=== PATIENT | male | born 1950 | race Caucasian/White ===

== ENCOUNTER 2025-01-01 11:10 | Inpatient (IN) | payer OTHER ==
[2025-01-01 13:26] LABS: BASO % 0.2 % (0-2.0); EOS % 0.5 % (0-4.5); HEMOGLOBIN 14.5 GM/dL (11.7-16.9); LYMPH % 15.1 % (8-40); MCH 30.9 pg (25.7-33.7); MCHC 32.9 g/dl (32.0-35.9); MEAN CELL VOLUME 93.9 fl (80-96); MEAN PLT VOLUME 9.5 fl (7.5-11.1); NEUT % 71.2 % (42.8-82.8); PLATELET COUNT 184 10^3/uL (134-434); RBC 4.68 M/mm3 (4.00-5.60); RDW 15.7 % (11.9-15.9); WHITE BLOOD COUNT 5.8 K/mm3 (4.0-10.0)
[2025-01-01 13:51] LABS: POTASSIUM 4.6 mmol/L (3.5-5.1)
[2025-01-01 13:53] LABS: BLOOD UREA NITROGEN 31.5 mg/dL (7-18); CALCIUM 9.9 mg/dL (8.5-10.1)
[2025-01-01 13:54] LABS: ALBUMIN 3.4 g/dl (3.4-5.0)
[2025-01-01 13:56] LABS: BILIRUBIN,DIRECT 8.9 mg/dL (0.0-0.2)
[2025-01-01 13:57] LABS: CREATININE 2.3 mg/dL (0.55-1.3)
[2025-01-01 13:58] LABS: BILIRUBIN,TOTAL 11.2 mg/dL (0.2-1); TOT PROT 6.9 g/dl (6.4-8.2)
[2025-01-01 14:19] LABS: HEPATITIS B SURFACE AG MATERN NON-REACTIVE (NONREACTIVE)
[2025-01-01] MEDS ORDERED: ACETYLCYSTEINE INJECTION 20% 7,600 MG in DEXTROSE 5%-WATER - 1,000 ML IVPB ONE ×2 (14:42→21:00)
[2025-01-01] MEDS ORDERED: ACETYLCYSTEINE INJECTION 20% 11,400 MG in DEXTROSE 5%-WATER - 250 ML IVPB ONE ×2 (14:42→15:45)
[2025-01-01] MEDS ORDERED: ACETYLCYSTEINE INJECTION 20% 3,800 MG in DEXTROSE 5%-WATER - 500 ML IVPB ONE ×2 (14:42→16:45)
[2025-01-01] MEDS: LACTATED RINGERS SOLUTION 1000 ML INFUS.BAG IV ONE (15:49)
[2025-01-01 16:36] LABS: INR 1.17 (0.83-1.09); PROTHROMBIN TIME (PATIENT) 12.8 SEC (9.7-13.0)
[2025-01-01 16:38] LABS: ACTIVATED PTT 32.4 SECONDS (25.2-36.5)
[2025-01-01 17:05] LABS: EPI CELLS >36 /uL (0-25.1); HYALINE CASTS 8 /uL (0-3.1); URINE APPEARANCE TURBID; URINE BACTERIA 17 /uL (0-1359); URINE BILIRUBIN 2+ (NEGATIVE); URINE COLOR DK YELLOW; URINE GLUCOSE (UA) 3+ (NEGATIVE); URINE KETONE 1+ (NEGATIVE); URINE LEUK ESTERASE NEGATIVE (NEGATIVE); URINE NITRITE NEGATIVE (NEGATIVE); URINE PROTEIN 2+ (NEGATIVE); URINE UROBILINOGEN 0.2 mg/dL (0.2-1.0)
[2025-01-01] MEDS: LACTATED RINGERS SOLUTION 1,000 ML/1,000 ML INFUS.BAG IV SCH (18:41)
[2025-01-01] MEDS: INSULIN ASPART SLIDING SCALE (NOVOLOG) 1 VIAL SQ SCH (23:05)
[2025-01-01] MEDS ORDERED: METOPROLOL TARTRATE 50 MG TABLET (FP) ONE (23:34)
[2025-01-01] MEDS ORDERED: MORPHINE SULFATE 2 MG/ML SYRINGE ONE (23:34)
[2025-01-01] MEDS: METOPROLOL TARTRATE 50 MG TABLET (FP) PO SCH (23:40)
[2025-01-01] MEDS: MORPHINE SULFATE 2 MG/ML SYRINGE IVPUSH ONE (23:40)
[2025-01-02 07:14] LABS: BASO % 0.4 % (0-2.0); EOS % 1.5 % (0-4.5); HEMATOCRIT 45.4 % (35.4-49); HEMOGLOBIN 14.9 GM/dL (11.7-16.9); LYMPH % 20.6 % (8-40); MCHC 32.8 g/dl (32.0-35.9); MEAN CELL VOLUME 94.4 fl (80-96); MEAN PLT VOLUME 9.6 fl (7.5-11.1); NEUT % 61.5 % (42.8-82.8); PLATELET COUNT 208 10^3/uL (134-434); RBC 4.81 M/mm3 (4.00-5.60); RDW 15.2 % (11.9-15.9); WHITE BLOOD COUNT 7.2 K/mm3 (4.0-10.0)
[2025-01-02 07:55] LABS: POTASSIUM 4.1 mmol/L (3.5-5.1)
[2025-01-02 07:58] LABS: ALBUMIN 3.6 g/dl (3.4-5.0); CALCIUM 9.8 mg/dL (8.5-10.1); MAGNESIUM 1.9 mg/dL (1.8-2.4)
[2025-01-02 08:01] LABS: CREATININE 2.1 mg/dL (0.55-1.3)
[2025-01-02 08:03] LABS: BILIRUBIN,TOTAL 12.6 mg/dL (0.2-1); TOT PROT 7.3 g/dl (6.4-8.2)
[2025-01-02 08:30] LABS: INR 1.19 (0.83-1.09); PROTHROMBIN TIME (PATIENT) 13.1 SEC (9.7-13.0)
[2025-01-02] MEDS ORDERED: amLODIPine BESYLATE 5 MG TABLET (FP) ONE (09:48)
[2025-01-02] MEDS ORDERED: METOPROLOL TARTRATE 50 MG TABLET (FP) ONE (09:49)
[2025-01-02] MEDS: amLODIPine BESYLATE 5 MG TABLET (FP) PO SCH (09:54)
[2025-01-02] MEDS: INDOMETHACIN 50 MG RECTAL SUPPOSITORY PR ONE (13:14)
[2025-01-02] MEDS ORDERED: GLUCAGON 1 MG KIT ONE (14:15)
[2025-01-02 17:41] VITALS: BMI 27.4
[2025-01-02] MEDS: LACTATED RINGERS SOLUTION 1,000 ML/1,000 ML INFUS.BAG IV SCH (17:55)
[2025-01-02] MEDS: PIPERACILLIN/TAZOB 3.375 GM 3.375 GM in DEXTROSE 5%-WATER - 50 ML IVPB SCH (18:25)
[2025-01-02 18:48] LABS: EPI CELLS >36 /uL (0-25.1); HYALINE CASTS 6 /uL (0-3.1); URINE APPEARANCE CLOUDY; URINE BACTERIA 17 /uL (0-1359); URINE BILIRUBIN 2+ (NEGATIVE); URINE COLOR DK YELLOW; URINE GLUCOSE (UA) 3+ (NEGATIVE); URINE KETONE 1+ (NEGATIVE); URINE LEUK ESTERASE NEGATIVE (NEGATIVE); URINE NITRITE NEGATIVE (NEGATIVE); URINE PROTEIN 2+ (NEGATIVE); URINE UROBILINOGEN 0.2 mg/dL (0.2-1.0)
[2025-01-02 21:42] LABS: URINE RBC 54.3 /uL (0-23.9); URINE WBC 161.3 /uL (0-25.8)
[2025-01-03] MEDS: PIPERACILLIN/TAZOB 3.375 GM 50 ML IVPB SCH (01:01)
[2025-01-03] MEDS ORDERED: INSULIN ASPART SLIDING SCALE (NOVOLOG) 1 VIAL SQ ONE (06:14)
[2025-01-03 08:01] LABS: POTASSIUM 3.8 mmol/L (3.5-5.1)
[2025-01-03 08:02] LABS: INR 1.23 (0.83-1.09); PROTHROMBIN TIME (PATIENT) 13.5 SEC (9.7-13.0)
[2025-01-03 08:04] LABS: CALCIUM 8.7 mg/dL (8.5-10.1)
[2025-01-03 08:05] LABS: BLOOD UREA NITROGEN 25.5 mg/dL (7-18)
[2025-01-03 08:07] LABS: CREATININE 2.5 mg/dL (0.55-1.3)
[2025-01-03 08:09] LABS: BILIRUBIN,TOTAL 10.9 mg/dL (0.2-1); TOT PROT 5.8 g/dl (6.4-8.2)
[2025-01-03 08:25] LABS: ALBUMIN 2.8 g/dl (3.4-5.0)
[2025-01-03] MEDS: oxyCODONE HCL 5 MG TABLET PO PRN (16:02)
[2025-01-04] MEDS ORDERED: INSULIN ASPART SLIDING SCALE (NOVOLOG) 1 VIAL SQ ONE (06:35)
[2025-01-04 07:58] LABS: HEMATOCRIT 38.3 % (40.1-51.0); HEMOGLOBIN 12.9 g/dL (13.7-17.5); MCHC 33.7 g/dl (32.3-36.5); MEAN CELL VOLUME 90.1 fl (79.0-92.2); MEAN PLT VOLUME 11.8 fl (9.4-12.4); PLATELET COUNT 162 x10^3/uL (163-337); RDW 15.2 % (12.2-16.6)
[2025-01-04 08:14] LABS: POTASSIUM 3.2 mmol/L (3.5-5.1)
[2025-01-04 08:16] LABS: CALCIUM 8.7 mg/dL (8.5-10.1)
[2025-01-04 08:17] LABS: ALBUMIN 2.7 g/dl (3.4-5.0); BLOOD UREA NITROGEN 29.7 mg/dL (7-18)
[2025-01-04 08:20] LABS: CREATININE 3.1 mg/dL (0.55-1.3)
[2025-01-04 08:21] LABS: BILIRUBIN,TOTAL 11.6 mg/dL (0.2-1)
[2025-01-04 08:22] LABS: TOT PROT 5.9 g/dl (6.4-8.2)
[2025-01-04 08:36] LABS: INR 1.27 (0.83-1.09)
[2025-01-04] MEDS: POTASSIUM CHLORIDE ORAL LIQUID 20 MEQ/15 ML PO ONE (09:54)
[2025-01-04] MEDS: LIDOCAINE 5% TOPICAL PATCH TP SCH (12:01)
[2025-01-04] MEDS: LACTATED RINGERS SOLUTION 1,000 ML/1,000 ML INFUS.BAG IV SCH (14:38)
[2025-01-04] MEDS: PIPERACILLIN/TAZOB 3.375 GM 3.375 GM in DEXTROSE 5%-WATER - 50 ML IVPB SCH (14:45)
[2025-01-04] MEDS: LIDOCAINE PATCH REMOVAL MC SCH (21:44)
[2025-01-05 07:07] LABS: HEMATOCRIT 39.2 % (40.1-51.0); HEMOGLOBIN 13.4 g/dL (13.7-17.5); MCHC 34.2 g/dl (32.3-36.5); MEAN CELL VOLUME 89.1 fl (79.0-92.2); MEAN PLT VOLUME 12.2 fl (9.4-12.4); PLATELET COUNT 167 x10^3/uL (163-337); RDW 15.2 % (12.2-16.6)
[2025-01-05 07:20] LABS: POTASSIUM 3.4 mmol/L (3.5-5.1)
[2025-01-05 07:25] LABS: INR 1.51 (0.83-1.09); PROTHROMBIN TIME (PATIENT) 16.6 SEC (9.7-13.0)
[2025-01-05 07:28] LABS: CALCIUM 8.9 mg/dL (8.5-10.1)
[2025-01-05 07:29] LABS: ALBUMIN 2.7 g/dl (3.4-5.0); BLOOD UREA NITROGEN 22.3 mg/dL (7-18)
[2025-01-05 07:32] LABS: CREATININE 2.7 mg/dL (0.55-1.3)
[2025-01-05 07:33] LABS: BILIRUBIN,TOTAL 12.6 mg/dL (0.2-1); TOT PROT 5.9 g/dl (6.4-8.2)
[2025-01-05] MEDS ORDERED: LACTATED RINGERS SOLUTION 1,000 ML with POTASSIUM CHLORIDE 20 MEQ IV ONE (08:42)
[2025-01-05 09:05] LABS: MAGNESIUM 1.7 mg/dL (1.8-2.4)
[2025-01-05] MEDS ORDERED: MIDAZOLAM HCL 2 MG/2 ML SINGLE DOSE VIAL ONE (09:16)
[2025-01-05] MEDS ORDERED: ESMOLOL HCL 100,000 MCG/10 ML VIAL ONE (09:17)
[2025-01-05] MEDS: POTASSIUM CHLORIDE 40 MEQ in LACTATED RINGERS SOLUTION 1,000 ML IV ONE ×2 (14:12→15:09)
[2025-01-05] MEDS: INDOMETHACIN 50 MG RECTAL SUPPOSITORY PR ONE (14:12)
[2025-01-05] MEDS ORDERED: LACTATED RINGERS SOLUTION 1,000 ML/1,000 ML INFUS.BAG IV SCH (14:45)
[2025-01-05] MEDS ORDERED: SODIUM CHLORIDE 0.9%/KCL 20 MEQ/1,000 ML INFUS.BAG IV SCH (14:45)
[2025-01-05] MEDS: KCL 20 MEQ PREMIX BAG 20 MEQ/100 ML INFUS.BAG IVPB ONE (14:51)
[2025-01-05] MEDS: PIPERACILLIN/TAZOB 3.375 GM 50 ML IVPB SCH (17:53)
[2025-01-05] MEDS: PIPERACILLIN/TAZOB 3.375 GM 3.375 GM in DEXTROSE 5%-WATER - 50 ML IVPB SCH (18:00)
[2025-01-05] MEDS: MAGNESIUM 1GM/D5W 100ML - 100 ML IVPB IVPB ONE (18:55)
[2025-01-05 19:59] VITALS: BP 166/74; PULSE 100; RESP 19; TEMP 98.8
[2025-01-06 17:06] LABS: ANTIGLOMERULAR BASEMENT MEN.AB <0.2 units (0.0-0.9)
[2025-01-10 15:07] LABS: C-ANCA <1:20 titer (Neg:<1:20)
== END 2025-01-05 20:13 | disposition short-term general hospital (02) | DRG 438 ==
LOC: JER 11:10 → JERBED 14:28 → J4W 01-02 16:24
PROVIDERS: ADMIT Hospitalist; ATTEND Internal Medicine
PROC: BF18YZZ Fluoroscopy of Pancreatic Ducts using Other Contrast (ICD-10-PCS; 2025-01-02)
PROC: 0F7D8DZ Dilation of Pancreatic Duct with Intraluminal Device, Via Natural or Artificial Opening Endoscopic (ICD-10-PCS; principal; 2025-01-02 11:00)
PROC: 0FBG8ZX Excision of Pancreas, Via Natural or Artificial Opening Endoscopic, Diagnostic (ICD-10-PCS; 2025-01-05)
PROC: XFJD8A7 Inspection of Pancreatic Duct using Single-use Duodenoscope, New Technology Group 7 (ICD-10-PCS; 2025-01-05)
DX: K86.89 Other specified diseases of pancreas (principal); K72.00 Acute and subacute hepatic failure without coma; I25.10 Atherosclerotic heart disease of native coronary artery without angina pectoris; E11.51 Type 2 diabetes mellitus with diabetic peripheral angiopathy without gangrene; E78.5 Hyperlipidemia, unspecified; E11.42 Type 2 diabetes mellitus with diabetic polyneuropathy; I10 Essential (primary) hypertension; E80.6 Other disorders of bilirubin metabolism; E88.09 Other disorders of plasma-protein metabolism, not elsewhere classified; E87.6 Hypokalemia
CPT/HCPCS: 36415; 74176-TC; 74181-TC; 76000-TC-FY; 76705-TC; 76775-TC; 80053; 81003; 82140; 82248; 82962; 83516; 83520; 83690; 83735; 84100; 84155; 84165; 85025; 85027; 85610; 85730; 86038; 86225; 86256; 86301; 86704; 86705; 86709; 86850; 86900; 86901; 87077; 87086; 87340; 87522; 88305-TC; 93005; 93010; 99285-25